=== PATIENT | male | born 1935 | race Caucasian/White ===

== ENCOUNTER → 2019-01-31 15:47 | Outpatient (CLI) | payer MEDICARE, SELFPAY ==
[2019-01-31 14:45] VITALS: BMI 32.3
[2019-01-31 17:03] LABS: T4 Free Direct 1.22 ng/dL (0.76-1.46); Thyroid Stim Hormone (TSH) 1.55 uIU/mL (0.358-3.74)
== END ==
PROVIDERS: Family Provider Family Medicine; PCP Family Medicine; Referring Provider Specialist; Visit Provider Specialist
DX: I10 Essential (primary) hypertension (principal); I48.91 Unspecified atrial fibrillation
CPT/HCPCS: 36415; 84436; 84439; 84443; 84481

== ENCOUNTER → 2019-02-22 | Outpatient (CLI) | payer MEDICARE, SELFPAY ==
[2019-01-31 14:45] VITALS: BMI 32.3
--- NOTE | 2019-02-22 14:24 | ECHOCS_ITS ---
Reason For Study: AFib Procedure This was a 2D Doppler, Color Flow transthoracic echocardiogram. The study was technically difficult. Contrast injection was performed. Exam performed in department. Left Ventricle Normal LV size. Concentric left ventricular hypertrophy. Left ventricular systolic function is normal. No evidence for diastolic dysfunction. No regional wall motion abnormalities noted. Right Ventricle Normal RV size. Normal systolic function. Atria The left atrium is mildly enlarged. The right atrium is mildly enlarged. No doppler evidence for ASD. Mitral Valve There is no mitral valve stenosis. Trivial mitral valve insufficiency. Tricuspid Valve There is no tricuspid stenosis. Mild tricuspid valve insufficiency. Pulmonary artery systolic pressure is 35 mmHg. Aortic Valve Aortic sclerosis, no stenosis. There is no aortic stenosis. No aortic valve insufficiency. Pulmonic Valve There is no pulmonic valvular stenosis. Trivial pulmonic valve insufficiency. Great Vessels Normal aortic root. Pericardium/Pleural No pericardial effusion. Medication 22 gauge I.V. with prn adaptor inserted into left arm. Diluted definity 5ml given slow IV push to enhance endocardial definition. MMode/2D Measurements & Calculations LVIDd: 3.5 cm IVSd: 1.5 cm Ao root diam: 3.6 cm LVIDs: 2.4 cm LVPWd: 1.5 cm LA dimension: 4.3 cm RVDd: 4.0 cm FS: 31.1 % LAV(MOD-bp): 67.6 ml LVAd ap4: 30.2 cm2 SV(MOD-sp4): 55.3 ml LAV(MOD-bp) Indexed: 31.6 ml/m2 EDV(MOD-sp4): 96.5 ml LAV(MOD-sp2): 65.8 ml EDV(sp4-el): 98.1 ml LAV(MOD-sp4): 64.5 ml LVAs ap4: 18.5 cm2 ESV(MOD-sp4): 41.1 ml ESV(sp4-el): 43.2 ml EF(MOD-sp4): 57.4 % EF(sp4-el): 56.0 % SV(sp4-el): 54.9 ml LA A4 area: 20.8 cm2 RA A4 area: 18.6 cm2 Time Measurements MV dec time: 0.16 sec Doppler Measurements & Calculations MV E max latasha: 124.7 cm/sec Ao V2 max: 94.0 cm/sec LV V1 max: 76.9 cm/sec MV A max latasha: 41.1 cm/sec Ao max P.6 mmHg LV V1 max P.4 mmHg MV E/A: 3.0 MR max latasha: 468.5 cm/sec PA V2 max: 117.5 cm/sec TR max latasha: 268.9 cm/sec MR max P.8 mmHg TR max P.9 mmHg Interpretation Summary Diluted definity 5ml given slow IV push to enhance endocardial definition. Left ventricular systolic function is normal. No evidence for diastolic dysfunction. Trivial mitral valve insufficiency. Mild tricuspid valve insufficiency. The study was technically difficult. Ordering Physician: Nhung Cordova Referring Physician: Cong Lombardi Performed By: Jorgito Neal [facility]
== END | disposition home or self-care (01) ==
LOC: CVS 14:23
PROVIDERS: Family Provider Family Medicine; PCP Family Medicine; Referring Provider Specialist; Visit Provider Specialist
DX: Z98.890 Other specified postprocedural states (principal)
CPT/HCPCS: 93306; Q9957; A4216; C8929

== ENCOUNTER 2021-01-28 16:26 | Emergency (ER) | payer MEDICARE, SELFPAY ==
[2020-08-25 13:19] VITALS: BMI 29.9
[2021-01-28 16:27] VITALS: BP 181/83; PULSE 83; RESP 15; TEMP 36.4; O2SAT 96; BMI 30.5
--- NOTE | 2021-01-28 16:46 | EDS_ITS ---
HPI History of Present Illness Chief Complaint: Bite Onset/Context/Timing Onset: Today Mechanism/Context: other (Dog bite) Location of pain/injuries: Left forearm Quality of Pain: Aching Location: Left forearm Worsened by: Nothing Relieved by: Nothing Associated Symptoms Associated Symptoms: Negative for Parasthesias and Weakness Narrative Narrative: Patient presents with dog bite to his left forearm that occurred today. Patient states she was walking along the sidewalk and was bitten by a dog that was on a leash. Patient states he talked to the floorworker lasting of the dog but did not ask him specifically if the dog's rabies vaccines were up-to-date. Patient states that the dog was not acting abnormally. Patient states the dog was easily controlled by the floorworker lasting after the bite. Patient went to an urgent care and was given a tetanus booster along with a prescription for antibiotics. Patient was then referred to the emergency department for possible rabies vaccine. Tetanus Immunization: <5 years [facility] Medical History (Updated 01/28/21 @ 16:[address] Gatito Segura DO) BPH (benign prostatic hyperplasia) Chronic atrial fibrillation Essential hypertension Gout Home Medications atorvastatin 20 mg PO DAILY 09/24/14 [History Last Taken Unknown] metoprolol tartrate 50 mg PO BID 09/24/14 [History Last Taken 09/30/14 06:00] fish oil-dha-epa 1,200 mg-144 mg-216 mg capsule cap PO DAILY cap 01/25/19 [History Last Taken Unknown] hydrochlorothiazide 25 mg tablet 25 mg PO DAILY 01/25/19 [History Last Taken Unknown] lisinopril 20 mg tablet 20 mg PO DAILY 01/25/19 [History Last Taken Unknown] apixaban 5 mg tablet 5 mg PO BID #60 tab 02/07/20 [Rx Last Taken Unknown] Allergy/AdvReac Type Severity Reaction Status Date / Time No Known Allergies Allergy Verified 01/28/21 16:29 Family History Mother Cancer Father Heart disease Surgical History H/O colonoscopy History of colon surgery Hx of appendectomy Social History Smoking Status: Former smoker how long ago did patient quit smokin + years ago alcohol intake: current alcohol intake frequency: 0-2 drinks per day Alcohol type: wine substance use type: does not use caffeine: Yes Type: coffee Number of servings: 1 ROS ROS ED Constitutional Constitutional ED: Denies chills or fever(s) Eyes Eyes: Denies blurry vision or change in vision ENT ENT ED: Denies rhinorrhea or sore throat Cardiovascular Cardiovascular: Denies chest pain or palpitations Respiratory/Chest Respiratory/Chest: Denies cough or dyspnea Gastrointestinal Gastrointestinal: Denies nausea or vomiting Genitourinary Genitourinary ED: Denies dysuria or hematuria Musculoskeletal Musculoskeletal: Denies back pain or neck pain Integumentary Denies abscess or rash Neurologic Neurologic: Denies headache(s) or weakness Allergic/Immunologic Allergic/Immunologic ED: Denies mouth swelling or urticaria EXAM Physical Exam Const Vital Signs: 01/28/21 16:27 Temperature 97.6 F L Temperature Source Temporal Pulse Rate 83 Respiratory Rate 15 Blood Pressure 181/83 H Blood Pressure Mean 115 Pulse Ox 96 Oxygen Delivery Method Room Air Positive well nourished and well developed General Appearance ED: well developed HEENT atraumatic Neck full ROM General: tenderness Resp normal respiratory effort and clear to auscultation bilaterally Cardio Rate: regular rate Rhythm: abnormal rhythm irregularly irregular GI normal to inspection, nondistended, normoactive bowel sounds and non-tender Palpation: soft Neuro oriented x3, CN's II-XII intact bilaterally, moves all extremities, no focal motor deficits and no sensory deficits noted Sensorium / Orientation: alert Skin Skin Narrative: There are 2 puncture wounds noted over the ulnar aspect of the left forearm. There is no bleeding. There is no gapping of the wound margins. There is no erythema. There is a mild hematoma under each puncture wound. There is some mild tenderness over the areas. There is full range of motion of the left elbow and left wrist. Radial pulses are equal bilaterally. MDM MDM MDM Narrative Medical decision making narrative: Since the dog is a domesticated dog, I do not feel rabies vaccine is necessary at this time. Patient was instructed to try to locate the floorworker lasting of the dog and specifically ask him if the dog's rabies immunizations are up-to-date. Patient was instructed to keep the wound clean and dry. Patient was instructed to take his antibiotics as prescribed. Patient was instructed to follow-up with his primary care physician in 5 to 7 days. Patient understood and was agreeable with the plan. All questions were answered. Discharge Plan Triage Chief Complaint: Bite ED Provider: Gatito Segura Dx/Rx/DC Orders Clinical Impression: Dog bite of left forearm Instructions: ED Dog Bite Prescriptions: No Action fish oil-dha-epa 1,200-144-216 mg capsule PO DAILY RF: 0 hydrochlorothiazide 25 mg tablet 25 mg PO DAILY RF: 0 lisinopril 20 mg tablet 20 mg PO DAILY RF: 0 atorvastatin 20 MG tablet 20 mg PO DAILY RF: 0 metoprolol tartrate 50 MG tablet 50 mg PO BID RF: 0 Eliquis 5 mg tablet 5 mg PO BID Qty: 60 RF: 11 Primary Care Provider: Cong Lombardi Referrals: Cong Lombardi MD [Primary Care Provider] - 5-7 Days Disposition Disposition: Home, self care
== END 2021-01-28 17:02 | disposition home or self-care (01) ==
LOC: ED 16:52
PROVIDERS: Emergency Provider Emergency Medicine; PCP Family Medicine
DX: S51.852A Open bite of left forearm, initial encounter (principal); W54.0XXA Bitten by dog, initial encounter; Z87.891 Personal history of nicotine dependence
CPT/HCPCS: 99283

== ENCOUNTER → 2024-11-21 | Outpatient (CLI) | payer MEDICARE, SELFPAY ==
--- NOTE | 2024-11-21 09:21 | ECHOD_ITS ---
Reason For Study Reason For Study: ATRIAL FIB-FLUTTER Procedure This was a 2D Doppler, Color Flow transthoracic echocardiogram. Exam performed in department. Left Ventricle Normal LV size. Left ventricular systolic function is normal. The left ventricular ejection fraction is 60 %. No regional wall motion abnormalities noted. Right Ventricle Normal RV size. Normal systolic function. Atria Normal left atrium. Normal right atrium. Mitral Valve Normal mitral valve. Mild (1+) eccentric mitral valve insufficiency. Tricuspid Valve Normal tricuspid valve. Mild tricuspid valve insufficiency. Pulmonary artery systolic pressure is 40 mmHg. Aortic Valve Trisinus/trileaflet aortic valve. Mild focal aortic valve calcification. Pulmonic Valve Normal pulmonic valve. Mild (1+) pulmonic valve insufficiency. Great Vessels Normal aortic root. The pulmonary artery is normal size. Inferior vena cava collapse with respiration. Pericardium/Pleural No pericardial effusion. MMode/2D Measurements & Calculations LVIDd: 4.6 cm IVSd: 1.0 cm Ao root diam: 3.2 cm LVIDs: 3.2 cm LVPWd: 1.1 cm RVDd: 4.1 cm FS: 30.7 % LAV(MOD-bp): 59.9 ml LVAd ap4: 29.5 cm2 SV(MOD-sp4): 54.1 ml LAV(MOD-bp) Indexed: 29.2 ml/m2 LVLd ap4: 8.0 cm SI(MOD-sp4): 26.4 ml/m2 LAV(MOD-sp2): 55.8 ml EDV(MOD-sp4): 91.3 ml LAV(MOD-sp4): 58.7 ml EDV(sp4-el): 92.8 ml LVAs ap4: 16.6 cm2 LVLs ap4: 6.6 cm ESV(MOD-sp4): 37.1 ml ESV(sp4-el): 35.4 ml EF(MOD-sp4): 59.3 % EF(sp4-el): 61.9 % SV(sp4-el): 57.4 ml LA A4 area: 20.6 cm2 LA dimension(2D): 3.4 cm RA A4 area: 20.5 cm2 TAPSE: 1.8 cm Doppler Measurements & Calculations MV E max latasha: 122.2 cm/sec Ao V2 max: 119.1 cm/sec LV V1 max: 85.8 cm/sec Ao max P.7 mmHg LV V1 max P.0 mmHg PA V2 max: 98.6 cm/sec TR max latasha: 297.8 cm/sec TR max P.5 mmHg ECHO/Echo Complete Interpretation Summary Normal LV size. Left ventricular systolic function is normal. The left ventricular ejection fraction is 60 %. Mild (1+) eccentric mitral valve insufficiency. Pulmonary artery systolic pressure is 40 mmHg. Ordering Physician: Chepe Porras Referring Physician: MARIANELA MUHAMMAD Performed By: Leora Yanez RDCS
== END | disposition home or self-care (01) ==
PROVIDERS: PCP Family Medicine; Referring Provider Internal Medicine Cardiovascular Disease; Visit Provider Internal Medicine Cardiovascular Disease
DX: I48.0 Paroxysmal atrial fibrillation (principal)
CPT/HCPCS: 93306